=== PATIENT | male | born 1955 | race Caucasian/White ===

== ENCOUNTER 2019-02-20 10:01 | Day surgery (SDC) | payer OTHER ==
[~2019-02-20] VITALS: Ht 182.9 cm; Wt 78.3 kg
[2019-02-20] MEDS ORDERED: BUPIVACAINE/EPI 0.5% 1:200K ONE (10:05)
[2019-02-20] MEDS ORDERED: NEOSPORIN OINT, 15GM ONE (10:05)
[2019-02-20] MEDS ORDERED: LACTATED RINGERS 1,000 ML IV SCH (10:37)
[2019-02-20] MEDS ORDERED: VIT1TABL46 PO (10:41)
[2019-02-20] MEDS ORDERED: MULT-658 PO (10:41)
[2019-02-20] MEDS ORDERED: TURM1CAP PO (10:41)
[2019-02-20 10:44] VITALS: BP 123/73
[2019-02-20] MEDS ORDERED: PLEASE ENTER HEIGHT AND WEIGHT MC SCH (11:00)
[2019-02-20] MEDS ORDERED: MIDAZOLAM 1 MG/ML, 2ML ONE (11:48)
[2019-02-20] MEDS ORDERED: FENTANYL PF 250 MCG/5ML ONE (11:48)
[2019-02-20] MEDS ORDERED: PROPOFOL 50 ML ONE (11:48)
[2019-02-20] MEDS ORDERED: DEXAMETHASONE 4 MG/ML, 1ML ONE (12:01)
[2019-02-20] MEDS ORDERED: ONDANSETRON 2MG/ML, 2ML ONE (12:01)
[2019-02-20] MEDS ORDERED: CEFAZOLIN 1,000 MG ONE (12:01)
[2019-02-20] MEDS ORDERED: MORPHINE SULFATE 4 MG/ML, 1ML IVPush PRN (12:30)
[2019-02-20] MEDS ORDERED: OXYcodone 5 MG/5 ML ORAL.SOL UDC PO PRN (12:30)
[2019-02-20] MEDS ORDERED: ACETAMINOPHEN 325 MG TABLET PO PRN (12:30)
[2019-02-20] MEDS ORDERED: ONDANSETRON 2MG/ML, 2ML IV PRN (12:30)
[2019-02-20] MEDS ORDERED: DIPHENHYDRAMINE 50 MG/ML, 1ML IVPush PRN (12:30)
[2019-02-20] MEDS ORDERED: EPHEDRINE 50 MG/ML, 1ML IVPush PRN (12:30)
[2019-02-20] MEDS ORDERED: FENTANYL PF 100 MCG/2ML IV PRN (12:30)
[2019-02-20] MEDS ORDERED: PROMETHAZINE 25 MG/ML, 1ML IV PRN (12:30)
[2019-02-20] MEDS ORDERED: EPHEDRINE 50 MG/ML, 1ML IM PRN (12:30)
[2019-02-20] MEDS ORDERED: MEPERIDINE/PF 25MG/0.5ML IVPush PRN (12:30)
[2019-02-20] MEDS ORDERED: DIAZEPAM 5 MG/ML, 2ML IVPush PRN (12:30)
[2019-02-20] MEDS ORDERED: MIDAZOLAM 1 MG/ML, 2ML IV PRN (12:30)
[2019-02-20] MEDS ORDERED: ONDANSETRON ODT 8 MG PO PRN (12:30)
[2019-02-20] MEDS ORDERED: FENTANYL PF 100 MCG/2ML ONE (13:32)
[2019-02-20] MEDS ORDERED: ACETAMINOPHEN 650 MG/20.3 ML UDC ONE (13:32)
[2019-02-20] MEDS ORDERED: OXYcodone 5 MG/5 ML ORAL.SOL UDC ONE (13:33)
== END 2019-02-20 17:10 | disposition home or self-care (01) ==
LOC: OUT 10:01 → EDBD 15:30 → OUT 17:10
PROVIDERS: ATTEND Orthopaedic Surgery
DX: M70.41 Prepatellar bursitis, right knee (principal)
CPT/HCPCS: 27340; 87015; 87070; 87075; 87102; 87116; 87205; 87206; 88304; 93005; J0690; J1100; J2250; J2405; J2704; J3010; J7120